=== PATIENT | male | born 1945 | race Caucasian/White ===

== ENCOUNTER 2021-03-16 07:44 | Observation (INO) | payer MEDICARE, SELFPAY ==
[2021-03-16] VITALS (18 sets, daily range): BP systolic 116–167; BP diastolic 68–115; PULSE 65–88; RESP 14–20; TEMP 36.6–36.8; O2SAT 90–98; BMI 30.4
--- NOTE | 2021-03-16 08:02 | XR_ITS ---
PROCEDURE: XR CHEST PORTABLE CLINICAL HISTORY: SOA, pain under rt rib with inspiration COMPARISON: CR [id number] VIEWS from 09/20/2012 FINDINGS: There is cardiomegaly. The patient has had a prior median sternotomy. There are low lung volumes with vascular crowding and blunting of the CP angle suggesting small bilateral pleural effusions. No obvious lobar consolidation or collapse. Vascular stent is present in the region the proximal left common carotid. Surgical clips are present along the mediastinum on the right and in the right paratracheal region. No acute bony abnormalities. IMPRESSION: Low lung volumes with cardiomegaly and small bilateral pleural effusions Dictated by: aLvell Frost MD 03/16/2021 08:52 Lavell Frost MD in [place] 03/16/2021 08:52
--- NOTE | 2021-03-16 08:14 | CT_ITS ---
PROCEDURE INFORMATION: Exam: CT Abdomen And Pelvis With Contrast Exam date and time: 03/16/2021 8:14 AM Age: 75 years old Clinical indication: Abdominal pain; Generalized; Additional info: Abdominal pain, right upper and lower quadrant TECHNIQUE: Imaging protocol: Computed tomography of the abdomen and pelvis with contrast. Radiation optimization: All CT scans at this facility use at least one of these dose optimization techniques: automated exposure control; mA and/or kV adjustment per patient size (includes targeted exams where dose is matched to clinical indication); or iterative reconstruction. Contrast material: ISOVUE; Contrast volume: 75 ml; Contrast route: IV; COMPARISON: None FINDINGS: Inferior thorax: Interstitial and trace airspace disease. Pleural thickening with dense left pleural and diaphragmatic calcification, along with fat containing hernia in the left lateral inferior thorax. Cardiomegaly and coronary artery calcification. Liver: Fatty infiltration of the liver with focal sparing about the gallbladder fossa. Gallbladder and bile ducts: Gallbladder dilatation with cholelithiasis, echoge high attenuation bile, and infiltration of pericholecystic fat. No biliary ductal dilatation. Pancreas: No pancreatic mass or ductal dilatation. Spleen: Spleen upper limits of normal size. Adrenal glands: Unremarkable adrenals. Kidneys and ureters: 4 mm nodular hypodensity in the left kidney which is too small to accurately characterize. No hydronephrosis. Stomach and bowel: Marked gastric wall thickening. Small bowel dilatation without a focal transition zone. Colonic dilatation with prominent stool. Diverticula, without pericolonic inflammation. Appendix: No acute appendicitis. Intraperitoneal space: Small quantity of dependent free fluid in the pelvis, along with a 10 mm calcification in the midline. Vasculature: 3.9 cm infrarenal fusiform infrarenal abdominal aortic aneurysm, with prominent crescentic thrombus and vascular calcification. Celiac and superior mesenteric artery stents. Lymph nodes: Subcentimeter lymph nodes. Urinary bladder: Mild bladder wall thickening. Reproductive: Punctate prostate calcifications. Bones/joints: Median sternotomy. Osteopenia and chronic compression fractures in the spine. Degenerative change, disc bulging, and mild scoliosis. Soft tissues: Multifocal postoperative change in the abdominal wall. Subcutaneous emphysema in the right anterior abdominal wall. IMPRESSION: 1. Gallbladder dilatation with cholelithiasis, echoge high attenuation bile, and infiltration of pericholecystic fat. 2. 3.9 cm infrarenal fusiform infrarenal abdominal aortic aneurysm, with prominent crescentic thrombus and vascular calcification. 3. Marked gastric wall thickening. 4. Additional findings as described above. The aforementioned findings initiated a critical results communication pathway. An addendum will be issued at the time of clincian notification.
--- NOTE | 2021-03-16 08:18 | ECG_ITS ---
APPROVED REPORT Exam: Resting ECG HR:69 bpm ECG Measurements Heart Rate 69 AXES QRSd 100 QRS 130 QT 414 T -18 QTc 443 Conclusion Atrial fibrillation with premature ventricular or aberrantly conducted complexes Right axis deviation Incomplete right bundle branch block Right ventricular hypertrophy Nonspecific ST abnormality, probably digitalis effect Abnormal QRS-T angle, consider primary T wave abnormality Abnormal ECG Electronically signed by : Johnson Salter MD 03/16/2021 20:34:20
[2021-03-16 08:38] LABS: Basophils % 0.1 % (0.1-2.0); Eosinophils # 0.1 K/mm3 (0.0-0.4); Eosinophils % 0.8 % (0.1-12.0); Hematocrit 42.2 % (42.0-52.0); Hemoglobin 13.7 g/dL (14.1-18.0); Lymphocytes # 0.7 K/mm3 (0.7-4.5); Mean Corpuscular HGB Conc 32.4 g/dL (31.8-35.4); Mean Corpuscular Volume 92.5 fl (80-94); Mean Platelet Volume 9.4 fl (7.4-10.4); Monocytes # 0.8 K/mm3 (0.1-1.0); Monocytes % 5.3 % (1.7-9.3); Neutrophils % 88.8 % (37.0-80.0); Platelet Count 135 K/mm3 (142-424); Red Blood Count 4.57 M/mm3 (4.60-6.20); Red Cell Distribution Width 17.5 % (11.5-17.5); White Blood Count 14.7 K/mm3 (4.8-10.8)
[2021-03-16 08:39] LABS: VBG Base Excess -0.7 mmol/L (-2.4-2.3); VBG HCO3 24.7 mmol/L (23-30); VBG Oxygen Saturation 86.8 % (50-70); VBG PCO2 44.5 mmol/L (35-51); VBG PH 7.36 mmol/L (7.31-7.41); VBG PO2 58.8 mmol/L (28-40); VBG Total CO2 26.1 mmol/L (23-27)
[2021-03-16 08:41] LABS: Chloride 95 mmol/L (98-107); Potassium 5.9 mmoL/L (3.5-5.1); Sodium 131 mmol/L (136-145)
[2021-03-16 08:42] LABS: MANUAL DIFFERENTIAL MANUAL DIFFERENTIAL (MANUAL DIFF)
[2021-03-16 08:43] LABS: Alanine Aminotransferase 16 U/L (12-78); Aspartate Amino Transferase 63 U/L (17-59); Blood Urea Nitrogen 15 mg/dl (9-20); Creatinine Clearance Estimated 83 mL/min (50-200); Estimated Glomerular Filt Rate 110 ml/min (>60); GFR (African American) 133 ML/MIN (>60)
[2021-03-16 08:44] LABS: Activated Partial Thrombo Time 29.6 seconds (22.8-30.6); Albumin Level 4.1 g/dl (3.5-5.0); Albumin/Globulin Ratio 1.1 (1.1-1.8); Alkaline Phosphatase 45 U/L (38-126); Anion Gap 12.9 mEq/L (5-15); Bilirubin,Total 1.8 mg/dl (0.2-1.3); Calcium 8.6 mg/dl (8.4-10.2); Carbon Dioxide 29 mmol/L (22.0-30.0); Globulin 3.6 g/dL (1.3-3.2); Glucose 151 mg/dl (74-100); INR 1.25 (0.9-1.1); Lipase 37 U/L (23-300); Prothrombin Time 13.9 seconds (10.1-12.5); Total Protein,Serum 7.7 g/dl (6.3-8.2)
[2021-03-16 08:53] LABS: NT Pro Brain Natriuretic Pep. 5750 pg/mL (0-125)
[2021-03-16 08:56] LABS: Troponin I 0.02 ng/ml (0.00-0.034)
[2021-03-16 08:59] LABS: Lymphocytes % 6 % (10-50); Monocytes % 9 % (2-9); Neutrophils % 85 % (42-76); Total Cells Counted 100
[2021-03-16 09:00] LABS: Platelet Estimate Slight Decrease; RBC Morphology Normal
[2021-03-16 09:06] LABS: Lactic Acid 2.5 mmol/L (0.7-2.1)
--- NOTE | 2021-03-16 09:13 | PC.NURSE ---
Going to CT
--- NOTE | 2021-03-16 10:08 | HMH.EDGENADL ---
ED Disposition Clinical Impression: Congestive heart failure (CHF), Cholecystitis Disposition: Admitted As Inpatient Condition on Discharge: Fair Referrals: Provider,Referral, [Primary Care Provider] - - Critical Care Critical Care Time: Yes Attestation: On 03/16/21, the high probability of a clinically significant, sudden or life threatening deterioration of the following system(s) required my full and direct attention, intervention and personal management. The time I documented below is in addition to time spent performing reported procedures but includes the following listed in this critical care notation. Total Critical Care Time: 35 Vital system(s) involved:: Circulatory Failure, Respiratory Failure My critical care processes included: Assessment & monitoring of V/S, Initial and Re-exams, Data Review/Interpretation, Coordinating Care, Medication Orders and management, Documentation Medical Decision Making - Medical Records Medical records reviewed: Yes: I reviewed the patient's medical records. - Ward Inquiry Pt receiving controlled substance: No Wrad was queried for this patient: No Vital Signs: 03/16/21 07:46 03/16/21 08:30 03/16/21 09:01 Temperature 98.2 F Temperature Source Oral Pulse Rate 80 65 Pulse Rate [Right Radial] 80 Respiratory Rate 18 16 14 Blood Pressure 121/70 126/97 H Blood Pressure [Right Arm] 123/87 Blood Pressure Mean 87 106 Blood Pressure Mean [Right Arm] 99 Blood Pressure Source [Right Arm] Automatic Cuff Blood Pressure Position [Right Arm] Sitting 02 Sat by Pulse Oximetry 90 L 97 98 Oxygen Delivery Method Room Air 03/16/21 09:31 03/16/21 10:00 03/16/21 10:31 Temperature Temperature Source Pulse Rate 78 88 70 Pulse Rate [Right Radial] Respiratory Rate 14 16 15 Blood Pressure 150/92 H 143/94 H 131/68 Blood Pressure [Right Arm] Blood Pressure Mean 110 101 72 Blood Pressure Mean [Right Arm] Blood Pressure Source [Right Arm] Blood Pressure Position [Right Arm] 02 Sat by Pulse Oximetry 98 98 98 Oxygen Delivery Method 03/16/21 11:00 03/16/21 11:30 03/16/21 12:00 Temperature Temperature Source Pulse Rate 65 71 73 Pulse Rate [Right Radial] Respiratory Rate 16 16 15 Blood Pressure 122/78 151/92 H 125/76 Blood Pressure [Right Arm] Blood Pressure Mean 86 111 93 Blood Pressure Mean [Right Arm] Blood Pressure Source [Right Arm] Blood Pressure Position [Right Arm] 02 Sat by Pulse Oximetry 92 L 95 97 Oxygen Delivery Method - Lab Data Lab Results 03/16/21 08:12: WBC 14.7 H, RBC 4.57 L, Hgb 13.7 L, Hct 42.2, MCV 92.5, MCH 30.0, MCHC 32.4, RDW 17.5, Plt Count 135 L, MPV 9.4, Neut % (Auto) 88.8 H, Lymph % (Auto) 5.0 L, [place] % (Auto) 5.3, Eos % (Auto) 0.8, Baso % (Auto) 0.1, Neut # (Auto) 13.0 H, Lymph # (Auto) 0.7, [place] # (Auto) 0.8, Eos # (Auto) 0.1, Baso # (Auto) 0.0, Total Counted 100, Neutrophils % (Manual) 85 H, Lymphocytes % (Manual) 6 L, Monocytes % (Manual) 9, Platelet Estimate Slight decrease, RBC Morphology Normal 03/16/21 08:12: Sodium 131 L, Potassium 5.9 H, Chloride 95 L, Carbon Dioxide 29, Anion Gap 12.9, BUN 15, Creatinine 0.70, Estimated Creat Clear 83, Estimated GFR 110, Est GFR ( Amer) 133, Glucose 151 H, Calcium 8.6, Total Bilirubin 1.8 H, AST 63 H, ALT 16, Alkaline Phosphatase 45, Troponin I 0.02, Total Protein 7.7, Albumin 4.1, Globulin 3.6 H, Albumin/Globulin Ratio 1.1 03/16/21 08:12: PT 13.9 H, INR 1.25 H, APTT 29.6 03/16/21 08:12: NT-Pro-B Natriuret Pep 5750 H, Lipase 37 03/16/21 08:14: VBG pH 7.36, VBG pCO2 44.5, VBG pO2 58.8 H, VBG HCO3 24.7, VBG Total CO2 26.1, VBG O2 Saturation 86.8 H, VBG Base Excess -0.7 03/16/21 08:45: Lactate 2.5 H 03/16/21 10:55: SARS-CoV-2 (PCR) Not detected, Influenza A Untype (PCR) Not detected, Influenza Type B (PCR) Not detected 03/16/21 11:20: Troponin I < 0.01 Result diagrams: 03/16/21 08:12 03/16/21 08:12 Orders (Tests/Meds): ED MEDICATIONS
--- NOTE | 2021-03-16 10:54 | PC.NURSE ---
has been called. Will call back.
--- NOTE | 2021-03-16 10:57 | PC.NURSE ---
on phone with
[2021-03-16 11:00] LABS: Coronavirus 19, PCR Not Detected (NotDetected); Influenza A, PCR Not Detected (NotDetected); Influenza B, PCR Not Detected (NotDetected)
--- NOTE | 2021-03-16 11:03 | PC.NURSE ---
Cardiology has been called
--- NOTE | 2021-03-16 11:05 | PC.NURSE ---
on the phone with Guera
--- NOTE | 2021-03-16 11:08 | PC.NURSE ---
has been paged
--- NOTE | 2021-03-16 11:34 | HMH.CNCARD ---
History of Present Illness Consult date: 03/16/21 Requesting physician: Taco Riley Chief complaint: CHF History of present illness: 75-year-old male presented to the emergency room with worsening shortness of breath and right flank pain. Patient states for the past few days he has been having worsening shortness of breath and unable to perform his daily activities. Patient denies chest pain, tightness or pressure. Patient states he was currently at the [facility] in December with the same diagnosis of shortness of breath. Patient states he was told at the [facility] to take his Lasix only if he had gained 5 pounds in a week. Patient states when he is feeling well he does not take his medications as they are prescribed. Stressed to patient the importance of taking medications as prescribed. Patient verbalized understanding. No swelling noted of the lower extremities. Patient denies palpitations. EKG reveals atrial fibrillation with PVCs, incomplete right bundle branch block, RVH with a heart rate of 69 bpm. Patient states he does have history of atrial fibrillation and has been on Eliquis. Patient states he does take his Eliquis twice a day on a regular basis. Atrial fibrillation is at a controlled rate. Patient states he does take metoprolol for his blood pressure at home. Patient states he does have history of hypertension. History of hyperlipidemia in which he is on a statin. Abdominal CT was performed which revealed cardiomegaly and coronary artery calcification. Gallbladder dilation was noted. 3.9 cm infrarenal fusiform aortic aneurysm was also noted with prominent thrombosis and vascular calcification. It was also noted in the abdominal CT that patient had celiac and superior mesenteric artery stents. Patient is a poor historian. Patient denies tobacco use. 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 Serial troponins have been performed. Troponin x1 has been negative. BNP noted to be over 5000. Potassium noted at 5.9. Sodium 131. Electrolyte imbalance managed by PCP. Chest x-ray revealed low volume in the lungs with cardiomegaly and small bilateral pleural effusions. Blood pressure is stable. Will obtain echocardiogram to assess LV function and valve status. Will start Lasix 80 mg IV for diastolic dysfunction. Pending on the echocardiogram results, medication and treatment therapies may be recommended. CXR:IMPRESSION: Low lung volumes with cardiomegaly and small bilateral pleural effusions ABD CT:FINDINGS: Inferior thorax: Interstitial and trace airspace disease. Pleural thickening with dense left pleural and diaphragmatic calcification, along with fat containing hernia in the left lateral inferior thorax. Cardiomegaly and coronary artery calcification. Liver: Fatty infiltration of the liver with focal sparing about the gallbladder fossa. Gallbladder and bile ducts: Gallbladder dilatation with cholelithiasis, echoge high attenuation bile, and infiltration of pericholecystic fat. No biliary ductal dilatation. Pancreas: No pancreatic mass or ductal dilatation. Spleen: Spleen upper limits of normal size. Adrenal glands: Unremarkable adrenals. Kidneys and ureters: 4 mm nodular hypodensity in the left kidney which is too small to accurately characterize. No hydronephrosis. Stomach and bowel: Marked gastric wall thickening. Small bowel dilatation without a focal transition zone. Colonic dilatation with prominent stool. Diverticula, without pericolonic inflammation. Appendix: No acute appendicitis. Intraperitoneal space: Small quantity of dependent free fluid in the pelvis, along with a 10 mm calcification in the midline. Vasculature: 3.9 cm infrarenal fusiform infrarenal abdominal aortic aneurysm, with prominent crescentic thrombus and vascular calcification. Celiac and superior mesenteric artery stents. Lymph nodes: Subcentimeter lymph nodes.
--- NOTE | 2021-03-16 11:35 | CA_ITS ---
APPROVED REPORT EXAM: Comprehensive 2D, Doppler, and color-flow Echocardiogram Brick Burner: Deborah Roberts CRT Ht: 5 ft 8 in Wt: 200lbs BSA: 2.04 BP: 120/78 mmHg Indications: Chest Pressure, Shortness of Breath, Hyperlipidemia, Hypertension/HDD, CABG 2000, AFIB 2D Dimensions LVOT 1.86 cm (M/F) 1.5-2.5 LA Volume 82.80 mL LA Volume Index 40.60 mL/m2 (M/F) 16-34 M-Mode Dimensions RVDd 3.93 cm (0.9-2.6) LA Diam 4.57 cm (1.9-4.0) LVDd 4.57 cm (3.5-5.7) Ao Diam 4.29 cm (2.0-3.7) LVDs 3.29 cm (3.5-5.7) IVSd 0.82 cm (0.6-1.1) PWd 1.04 cm (0.6-1.1) EF (Teich) 54.30% FS 28.00% EDV (Teich) 95.90 mL TAPSE 1.09 (<1.7) ESV (Teich) 43.80 mL LV Diastology E Decel Time 127.00 (160-240 msec) E/A Ratio 6.10 Aortic Valve AO Peak GR. 4.50 mmHg Mitral Valve MV A Velocity 16.00 (40-130 cm/s) E/A Ratio 6.10 MV Decel. Time 127.00 (160-240 ms) Pulmonary Valve PV Peak Velocity 109.00 (50-150 cm/s) Tricuspid Valve TR P. Velocity 351.00 cm/s Left Ventricle Left atrium is moderately enlarged, left ventricle is normal size, mild concentric left ventricular hypertrophy, visually estimated ejection fraction 55% with no obvious regional wall motion abnormality, there is abnormal septal motion. Diastolic parameters are inconclusive. Right Ventricle Right atrium and right ventricle mildly enlarged with normal contractility. Aortic Valve Aortic valve is thickened and calcified without Doppler evidence of aortic stenosis or aortic insufficiency. Mitral Valve Mitral valve grossly normal, there is mild mitral regurgitation. Tricuspid Valve Tricuspid valve grossly normal, there is mild tricuspid regurgitation, calculated right ventricular systolic pressure is 60 mmHg. Pulmonic Valve Pulmonic valve is poorly visualized. Great Vessels Aortic root is normal size. Inferior vena cava is poorly visualized. Pericardium No significant pericardial effusion noted. Conclusion 1. Biatrial enlargement, normal left ventricular size, mild concentric left ventricular hypertrophy, visually estimated ejection fraction 55%, there is abnormal septal motion, diastolic parameters are inconclusive. 2. Enlarged right ventricle with normal contractility. 3. Thickened and calcified aortic valve without aortic stenosis or aortic insufficiency. 4. Mild mitral and tricuspid regurgitation, calculated right ventricular systolic pressure 60 mmHg. 5. No significant pericardial effusion noted. 6. Inferior vena cava is poorly visualized. Electronically signed by : Eliseo Vance MD 03/16/2021 20:13:31
[2021-03-16 11:52] LABS: Troponin I < 0.01 ng/ml (0.00-0.034)
--- NOTE | 2021-03-16 11:52 | PC.NURSE ---
has been paged.
--- NOTE | 2021-03-16 12:19 | PC.NURSE ---
MARE GOODE speaking with Dr. Riley
--- NOTE | 2021-03-16 12:20 | PC.NURSE ---
on the phone with
--- NOTE | 2021-03-16 12:34 | PC.NURSE ---
Spoke with Leighann in Care Management about admission
--- NOTE | 2021-03-16 12:48 | HMH.GSCON ---
*Admission Date: 03/16/21 *Reason for consult:: Calculus cholecystitis *History of present illness: This is a 75-year-old gentleman who presented to the emergency department with a 3-4-day history of increasing pain mostly in the right upper quadrant. Evaluation included a CT scan that showed changes consistent with acute calculus cholecystitis. Transaminases essentially normal. Bilirubin 1.8. White blood cell count 14.7. The patient was also determined to have a degree of congestive heart failure as his BNP was 5750. Evaluation by Cards ongoing...echo pending. Review of Systems - Constitutional Denies chills - ENT Denies difficulty swallowing - *Cardiovascular Reports shortness of breath with activity - *Respiratory Denies cough - *Gastrointestinal Reports abdominal pain - *Genitourinary Denies blood in urine - *Neurologic Reports abnormal walking, Reports abnormal hearing, Reports weakness - Hematologic/Lymphatic Denies easy bleeding [facility] History *Have you ever received a pneumonia vaccine?: No *Have you received a flu vaccine this season?: No - *Social History Smoking Status: Smoker, status unknown Alcohol Intake: never Alcohol Intake Frequency:: other *Occupational Status:: retired *Travel in the last 8 weeks: None Family Hx:: No significant family history Meds Allergies Allergy/AdvReac Type Severity Reaction Status Date / Time No Known Allergies Allergy Unverified 03/13/17 14:33 Exam Vital signs and Labs for Last 24 Hours: Temp Pulse Resp BP Pulse Ox 98.2 F 73 15 125/76 97 03/16/21 07:46 03/16/21 12:00 03/16/21 12:00 03/16/21 12:00 03/16/21 12:00 Laboratory Results - last 24 hr 03/16/21 08:12: WBC 14.7 H, RBC 4.57 L, Hgb 13.7 L, Hct 42.2, MCV 92.5, MCH 30.0, MCHC 32.4, RDW 17.5, Plt Count 135 L, MPV 9.4, Neut % (Auto) 88.8 H, Lymph % (Auto) 5.0 L, [place] % (Auto) 5.3, Eos % (Auto) 0.8, Baso % (Auto) 0.1, Neut # (Auto) 13.0 H, Lymph # (Auto) 0.7, [place] # (Auto) 0.8, Eos # (Auto) 0.1, Baso # (Auto) 0.0, Total Counted 100, Neutrophils % (Manual) 85 H, Lymphocytes % (Manual) 6 L, Monocytes % (Manual) 9, Platelet Estimate Slight decrease, RBC Morphology Normal 03/16/21 08:12: Sodium 131 L, Potassium 5.9 H, Chloride 95 L, Carbon Dioxide 29, Anion Gap 12.9, BUN 15, Creatinine 0.70, Estimated Creat Clear 83, Estimated GFR 110, Est GFR ( Amer) 133, Glucose 151 H, Calcium 8.6, Total Bilirubin 1.8 H, AST 63 H, ALT 16, Alkaline Phosphatase 45, Troponin I 0.02, Total Protein 7.7, Albumin 4.1, Globulin 3.6 H, Albumin/Globulin Ratio 1.1 03/16/21 08:12: PT 13.9 H, INR 1.25 H, APTT 29.6 03/16/21 08:12: NT-Pro-B Natriuret Pep 5750 H, Lipase 37 03/16/21 08:14: VBG pH 7.36, VBG pCO2 44.5, VBG pO2 58.8 H, VBG HCO3 24.7, VBG Total CO2 26.1, VBG O2 Saturation 86.8 H, VBG Base Excess -0.7 03/16/21 08:45: Lactate 2.5 H 03/16/21 10:55: SARS-CoV-2 (PCR) Not detected, Influenza A Untype (PCR) Not detected, Influenza Type B (PCR) Not detected 03/16/21 11:20: Troponin I < 0.01 I & O for Last 24 hours: Intake & Output 03/14/21 03/15/21 03/16/21 03/17/21 11:59 11:59 11:59 11:59 Weight 200 lb - Constitutional no acute distress - *Routine Respiratory Exam Absent: respiratory distress - *Routine Cardiovascular Exam Absent: tachycardia - *Routine Abdominal Exam Present: soft, tenderness Results - Labs 03/16/21 08:12 03/16/21 08:12 Laboratory Results - last 24 hr 03/16/21 08:12: WBC 14.7 H, RBC 4.57 L, Hgb 13.7 L, Hct 42.2, MCV 92.5, MCH 30.0, MCHC 32.4, RDW 17.5, Plt Count 135 L, MPV 9.4, Neut % (Auto) 88.8 H, Lymph % (Auto) 5.0 L, [place] % (Auto) 5.3, Eos % (Auto) 0.8, Baso % (Auto) 0.1, Neut # (Auto) 13.0 H, Lymph # (Auto) 0.7, [place] # (Auto) 0.8, Eos # (Auto) 0.1, Baso # (Auto) 0.0, Total Counted 100, Neutrophils % (Manual) 85 H, Lymphocytes % (Manual) 6 L, Monocytes % (Manual) 9, Platelet Estimate Slight decrease, RBC Morphology Normal 03/16/21 08:12: Sodium 131 L, Potassium
[2021-03-16 12:51] LABS: Reflex Lactic Add Lactic Reflex
[2021-03-16 14:23] LABS: Lactic Acid Follow Up (RFLX 1) 2.2 mmol/L (0.7-2.1)
[2021-03-16 15:11] LABS: Troponin I < 0.01 ng/ml (0.00-0.034)
[2021-03-16 16:03] LABS: Reflex Lactic (2 hrs) Add Lactic Reflex
[2021-03-16 17:01] LABS: Lactic Acid Follow up (RFLX 2) 2.2 mmol/L (0.7-2.1)
--- NOTE | 2021-03-16 19:08 | PC.NURSE ---
AOX4 ABLE TO MAKE NEEDS KNOWN TO STAFF, DENIES N/V/D. STATES THAT PAIN IS TOLERABLE AT THIS TIME. PT DID NOT KNOW HOME MEDS SO THIS RN COULD NOT COMPLETE MED REC.
[2021-03-17] VITALS (8 sets, daily range): BP systolic 95–160; BP diastolic 38–75; PULSE 60–90; RESP 16–20; TEMP 36.4–36.6; O2SAT 90–92; BMI 30.4
--- NOTE | 2021-03-17 06:32 | HMH.GSPN ---
Subjective Patient reports: feels better Progress Note: A&P (1) Congestive heart failure (CHF) Status: Acute (2) Diastolic dysfunction Status: Acute (3) Atrial fibrillation Status: Acute (4) HTN (hypertension) Status: Acute (5) HLD (hyperlipidemia) Status: Acute (6) AAA (abdominal aortic aneurysm) Status: Acute (7) Acute cholecystitis due to biliary calculus Status: Acute Assessment and plan: Patient symptomatically improved on current therapy (pain control/antibiotics). Plan cholecystectomy today if cleared by cardiology. I have discussed the risks and benefits including, but not limited to: Bleeding Infection Damage to surrounding tissue Inherent risks of sedation The patient agrees to proceed. Exam Vital signs and Labs for Last 24 Hours: Temp Pulse Resp BP Pulse Ox 97.5 F L 80 16 117/75 92 L 03/17/21 04:00 03/17/21 04:00 03/17/21 04:00 03/17/21 04:00 03/17/21 04:00 Laboratory Results - last 24 hr 03/16/21 08:12: WBC 14.7 H, RBC 4.57 L, Hgb 13.7 L, Hct 42.2, MCV 92.5, MCH 30.0, MCHC 32.4, RDW 17.5, Plt Count 135 L, MPV 9.4, Neut % (Auto) 88.8 H, Lymph % (Auto) 5.0 L, [place] % (Auto) 5.3, Eos % (Auto) 0.8, Baso % (Auto) 0.1, Neut # (Auto) 13.0 H, Lymph # (Auto) 0.7, [place] # (Auto) 0.8, Eos # (Auto) 0.1, Baso # (Auto) 0.0, Total Counted 100, Neutrophils % (Manual) 85 H, Lymphocytes % (Manual) 6 L, Monocytes % (Manual) 9, Platelet Estimate Slight decrease, RBC Morphology Normal 03/16/21 08:12: Sodium 131 L, Potassium 5.9 H, Chloride 95 L, Carbon Dioxide 29, Anion Gap 12.9, BUN 15, Creatinine 0.70, Estimated Creat Clear 83, Estimated GFR 110, Est GFR ( Amer) 133, Glucose 151 H, Calcium 8.6, Total Bilirubin 1.8 H, AST 63 H, ALT 16, Alkaline Phosphatase 45, Troponin I 0.02, Total Protein 7.7, Albumin 4.1, Globulin 3.6 H, Albumin/Globulin Ratio 1.1 03/16/21 08:12: PT 13.9 H, INR 1.25 H, APTT 29.6 03/16/21 08:12: NT-Pro-B Natriuret Pep 5750 H, Lipase 37 03/16/21 08:14: VBG pH 7.36, VBG pCO2 44.5, VBG pO2 58.8 H, VBG HCO3 24.7, VBG Total CO2 26.1, VBG O2 Saturation 86.8 H, VBG Base Excess -0.7 03/16/21 08:45: Lactate 2.5 H 03/16/21 10:55: SARS-CoV-2 (PCR) Not detected, Influenza A Untype (PCR) Not detected, Influenza Type B (PCR) Not detected 03/16/21 11:20: Troponin I < 0.01 03/16/21 14:00: Troponin I < 0.01 03/16/21 14:00: Lactate 2.2 H 03/16/21 16:28: Lactate 2.2 H I & O for Last 24 hours: Intake & Output 03/14/21 03/15/21 03/16/21 03/17/21 11:59 11:59 11:59 11:59 Output Total 500 / 500 Balance -500 / -500 Weight 200 lb 201 lb 0.985 oz - Constitutional no acute distress - *Routine Respiratory Exam Absent: respiratory distress - *Routine Cardiovascular Exam Absent: tachycardia - *Routine Abdominal Exam Present: soft, tenderness
[2021-03-17 07:22] LABS: Basophils % 0.4 % (0.1-2.0); Eosinophils # 0.1 K/mm3 (0.0-0.4); Eosinophils % 1.3 % (0.1-12.0); Hematocrit 43.1 % (42.0-52.0); Hemoglobin 13.8 g/dL (14.1-18.0); Lymphocytes # 0.8 K/mm3 (0.7-4.5); Lymphocytes % 8.2 % (10-50); Mean Corpuscular HGB Conc 31.9 g/dL (31.8-35.4); Mean Corpuscular Hemoglobin 29.8 pg (27.0-31.2); Mean Corpuscular Volume 93.4 fl (80-94); Mean Platelet Volume 8.7 fl (7.4-10.4); Monocytes # 0.6 K/mm3 (0.1-1.0); Monocytes % 5.9 % (1.7-9.3); Neutrophils # 7.8 K/mm3 (1.8-7.8); Neutrophils % 84.1 % (37.0-80.0); Platelet Count 142 K/mm3 (142-424); Red Blood Count 4.61 M/mm3 (4.60-6.20); Red Cell Distribution Width 17.8 % (11.5-17.5); White Blood Count 9.3 K/mm3 (4.8-10.8)
[2021-03-17 07:31] LABS: Chloride 93 mmol/L (98-107); Potassium 3.9 mmoL/L (3.5-5.1); Sodium 133 mmol/L (136-145)
[2021-03-17 07:33] LABS: Blood Urea Nitrogen 19 mg/dl (9-20); Creatinine Clearance Estimated 84 mL/min (50-200); Estimated Glomerular Filt Rate 82 ml/min (>60); GFR (African American) 100 ML/MIN (>60)
[2021-03-17 07:34] LABS: Alanine Aminotransferase 9 U/L (12-78); Albumin Level 3.7 g/dl (3.5-5.0); Albumin/Globulin Ratio 1.1 (1.1-1.8); Alkaline Phosphatase 64 U/L (38-126); Anion Gap 10.9 mEq/L (5-15); Aspartate Amino Transferase 22 U/L (17-59); Bilirubin,Total 1.4 mg/dl (0.2-1.3); Calcium 8.6 mg/dl (8.4-10.2); Carbon Dioxide 33 mmol/L (22.0-30.0); Globulin 3.4 g/dL (1.3-3.2); Glucose 107 mg/dl (74-100); Total Protein,Serum 7.1 g/dl (6.3-8.2)
--- NOTE | 2021-03-17 09:11 | HMH.PNCARD ---
Subjective Date: 03/17/21 Time: 08:35 Principal diagnosis: CHF Interval history: 75-year-old male presented to the emergency room with worsening shortness of breath and right flank pain on 03/16/21. Patient states for the past few days he has been having worsening shortness of breath and unable to perform his daily activities. Patient denies chest pain, tightness or pressure. Patient states he was currently at the [facility] in December with the same diagnosis of shortness of breath. Patient states he was told at the [facility] to take his Lasix only if he had gained 5 pounds in a week. Patient states when he is feeling well he does not take his medications as they are prescribed. Due to BNP being elevated and consistent with diastolic congestive heart failure, Lasix 80 mg was given IV in which did have appropriate response. Patient did diurese appropriately. Surgery has been consulted due to patient having gallstones. Patient is to undergo cholecystectomy today once cardiac clearance is given. Patient states overall he is breathing much better. Patient does continue to have right flank pain. Patient denies vomiting. Echocardiogram revealed EF 55% there is abnormal septal motion abnormality. Thickened and calcified aortic valve without aortic stenosis or aortic insufficiency. Mild mitral and tricuspid regurgitation noted. 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 Patient does have history of atrial fibrillation. Patient is currently on Eliquis 5 mg twice daily for anticoagulation. Patient is also on metoprolol for heart rate and blood pressure control. Eliquis will need to be held prior to surgery. Eliquis will need to be resumed immediately after surgery. We will stop Lasix 80 mg IV and switch to Lasix 40 mg p.o. daily due to diastolic congestive heart failure. Echo:Conclusion 1. Biatrial enlargement, normal left ventricular size, mild concentric left ventricular hypertrophy, visually estimated ejection fraction 55%, there is abnormal septal motion, diastolic parameters are inconclusive. 2. Enlarged right ventricle with normal contractility. 3. Thickened and calcified aortic valve without aortic stenosis or aortic insufficiency. 4. Mild mitral and tricuspid regurgitation, calculated right ventricular systolic pressure 60 mmHg. 5. No significant pericardial effusion noted. 6. Inferior vena cava is poorly visualized. Exam Vital signs and Labs for Last 24 Hours: Temp Pulse Resp BP Pulse Ox 97.5 F L 80 16 117/75 92 L 03/17/21 04:00 03/17/21 04:00 03/17/21 04:00 03/17/21 04:00 03/17/21 04:00 Laboratory Results - last 24 hr 03/16/21 10:55: SARS-CoV-2 (PCR) Not detected, Influenza A Untype (PCR) Not detected, Influenza Type B (PCR) Not detected 03/16/21 11:20: Troponin I < 0.01 03/16/21 14:00: Troponin I < 0.01 03/16/21 14:00: Lactate 2.2 H 03/16/21 16:28: Lactate 2.2 H 03/17/21 06:49: WBC 9.3 D, RBC 4.61, Hgb 13.8 L, Hct 43.1, MCV 93.4, MCH 29.8, MCHC 31.9, RDW 17.8 H, Plt Count 142, MPV 8.7, Neut % (Auto) 84.1 H, Lymph % (Auto) 8.2 L, [place] % (Auto) 5.9, Eos % (Auto) 1.3, Baso % (Auto) 0.4, Neut # (Auto) 7.8, Lymph # (Auto) 0.8, [place] # (Auto) 0.6, Eos # (Auto) 0.1, Baso # (Auto) 0.0 03/17/21 06:49: Sodium 133 L, Potassium 3.9 D, Chloride 93 L, Carbon Dioxide 33 H, Anion Gap 10.9, BUN 19 D, Creatinine 0.90 D, Estimated Creat Clear 84, Estimated GFR 82, Est GFR ( Amer) 100 D, Glucose 107 H D, Calcium 8.6, Total Bilirubin 1.4 H, AST 22 D, ALT 9 L D, Alkaline Phosphatase 64, Total Protein 7.1, Albumin 3.7, Globulin 3.4 H, Albumin/Globulin Ratio 1.1 I & O for Last 24 hours: Intake & Output 03/14/21 03/15/21 03/16/21 03/17/21 23:59 23:59 23:59 23:59 Output Total 500 / 500 Balance -500 / -500 Weight 200 lb 4 oz 201 lb 0.985 oz - Constitutional mild distress, obese, cooperative - *Routine HEENT Exam Head: Present: normocephalic ENT: Presen
--- NOTE | 2021-03-17 09:26 | P.PN_ITS ---
Internal Medicine - PN: Subj *Date: 03/17/21 *Time: 09:27 Exam Vital signs and Labs for Last 24 Hours: Temp Pulse Resp BP Pulse Ox 97.5 F L 80 16 117/75 92 L 03/17/21 04:00 03/17/21 04:00 03/17/21 04:00 03/17/21 04:00 03/17/21 04:00 Laboratory Results - last 24 hr 03/16/21 10:55: SARS-CoV-2 (PCR) Not detected, Influenza A Untype (PCR) Not detected, Influenza Type B (PCR) Not detected 03/16/21 11:20: Troponin I < 0.01 03/16/21 14:00: Troponin I < 0.01 03/16/21 14:00: Lactate 2.2 H 03/16/21 16:28: Lactate 2.2 H 03/17/21 06:49: WBC 9.3 D, RBC 4.61, Hgb 13.8 L, Hct 43.1, MCV 93.4, MCH 29.8, MCHC 31.9, RDW 17.8 H, Plt Count 142, MPV 8.7, Neut % (Auto) 84.1 H, Lymph % (Auto) 8.2 L, [place] % (Auto) 5.9, Eos % (Auto) 1.3, Baso % (Auto) 0.4, Neut # (Auto) 7.8, Lymph # (Auto) 0.8, [place] # (Auto) 0.6, Eos # (Auto) 0.1, Baso # (Auto) 0.0 03/17/21 06:49: Sodium 133 L, Potassium 3.9 D, Chloride 93 L, Carbon Dioxide 33 H, Anion Gap 10.9, BUN 19 D, Creatinine 0.90 D, Estimated Creat Clear 84, Estimated GFR 82, Est GFR ( Amer) 100 D, Glucose 107 H D, Calcium 8.6, Total Bilirubin 1.4 H, AST 22 D, ALT 9 L D, Alkaline Phosphatase 64, Total Protein 7.1, Albumin 3.7, Globulin 3.4 H, Albumin/Globulin Ratio 1.1 I & O for Last 24 hours: Intake & Output 03/14/21 03/15/21 03/16/21 03/17/21 23:59 23:59 23:59 23:59 Output Total 500 / 500 Balance -500 / -500 Weight 200 lb 4 oz 201 lb 0.985 oz Assessment and Plan (1) Congestive heart failure (CHF) Status: Acute Category: Medical Code(s): I50.9 - Heart failure, unspecified (2) Diastolic dysfunction Status: Acute Category: Medical Code(s): I51.89 - Other ill-defined heart diseases (3) Atrial fibrillation Status: Acute Category: Medical Code(s): I48.91 - Unspecified atrial fibrillation (4) HTN (hypertension) Status: Acute Category: Medical Code(s): I10 - Essential (primary) hypertension (5) HLD (hyperlipidemia) Status: Acute Category: Medical Code(s): E78.5 - Hyperlipidemia, unspecified (6) AAA (abdominal aortic aneurysm) Status: Acute Category: Medical Code(s): I71.4 - Abdominal aortic aneurysm, without rupture (7) Acute cholecystitis due to biliary calculus Status: Acute Category: Medical Code(s): K80.00 - Calculus of gallbladder with acute cholecystitis without obstruction
--- NOTE | 2021-03-17 12:31 | HMH.HP ---
*Admission Date: 03/16/21 *Chief complaint: R Side Abdominal Pain *History of present illness: Patient is a 75-year-old male with medical history of coronary artery disease status post CABG, hypertension presenting to the ED of breath and right-sided abdominal pain. Patient states that his main concern is the right-sided abdominal pain that has been progressively worsening. States that the pain is cyclical in nature, nothing makes it better or worse. Pain is associated with nausea, patient has not had any vomiting. Patient states that months ago he was admitted [facility] the [facility] for similar symptoms and at that point started on diuretics. Patient states that he has not been taking his diuretics. Patient states that he has been feeling short of breath is also been progressively worsening. In triage patient was noted to be hypoxic saturating 88% and placed on 3 L of oxygen. This ia new requirement for the patient. 03/16/21 CXR: IMPRESSION: Low lung volumes with cardiomegaly and small bilateral pleural effusions Dictated by: Lavell Frost MD 03/16/21 Abd/Pelvic CT: FINDINGS: Inferior thorax: Interstitial and trace airspace disease. Pleural thickening with dense left pleural and diaphragmatic calcification, along with fat containing hernia in the left lateral inferior thorax. Cardiomegaly and coronary artery calcification. Liver: Fatty infiltration of the liver with focal sparing about the gallbladder fossa. Gallbladder and bile ducts: Gallbladder dilatation with cholelithiasis, echoge high attenuation bile, and infiltration of pericholecystic fat. No biliary ductal dilatation. Pancreas: No pancreatic mass or ductal dilatation. Spleen: Spleen upper limits of normal size. Adrenal glands: Unremarkable adrenals. Kidneys and ureters: 4 mm nodular hypodensity in the left kidney which is too small to accurately characterize. No hydronephrosis. Stomach and bowel: Marked gastric wall thickening. Small bowel dilatation without a focal transition zone. Colonic dilatation with prominent stool. Diverticula, without pericolonic inflammation. Appendix: No acute appendicitis. Intraperitoneal space: Small quantity of dependent free fluid in the pelvis, along with a 10 mm calcification in the midline. Vasculature: 3.9 cm infrarenal fusiform infrarenal abdominal aortic aneurysm, with prominent crescentic thrombus and vascular calcification. Celiac and superior mesenteric artery stents. Lymph nodes: Subcentimeter lymph nodes. Urinary bladder: Mild bladder wall thickening. Reproductive: Punctate prostate calcifications. Bones/joints: Median sternotomy. Osteopenia and chronic compression fractures in the spine. Degenerative change, disc bulging, and mild scoliosis. Soft tissues: Multifocal postoperative change in the abdominal wall. Subcutaneous emphysema in the right anterior abdominal wall. IMPRESSION: 1. Gallbladder dilatation with cholelithiasis, echoge high attenuation bile, and infiltration of pericholecystic fat. 2. 3.9 cm infrarenal fusiform infrarenal abdominal aortic aneurysm, with prominent crescentic thrombus and vascular calcification. 3. Marked gastric wall thickening. 4. Additional findings as described above. Electronically signed by Bola Pollock MD 75-year-old patient lying in bed resting quietly, she reports pain is been controlled during the night and reports only slight abdominal tenderness this morning. Plan for surgery this afternoon, patient requesting diet explained to patient purpose of n.p.o. before surgery, patient verbalized understanding. He has received doses of Zosyn and cefazolin IV during inpatient. Cardiology following and general surgery following. [facility] History I have reviewed the patient's past medical history: Yes Medical History: Reports:: Arrhythmia, Atrial Fibrillation, Cancer, Coronary Artery Disease, Hyperlipidemia, Hypertension *Have you ever received a pn
[2021-03-18] VITALS (8 sets, daily range): BP systolic 98–149; BP diastolic 49–81; PULSE 62–90; RESP 16–20; TEMP 36.4–36.7; O2SAT 90–94; BMI 30.8
--- NOTE | 2021-03-18 06:43 | PC.NURSE ---
No acute events have occurred thus far in this RN's shift.
[2021-03-18 06:50] LABS: Basophils # 0.1 K/mm3 (0-0.2); Basophils % 0.8 % (0.1-2.0); Eosinophils # 0.3 K/mm3 (0.0-0.4); Eosinophils % 3.4 % (0.1-12.0); Hematocrit 44.8 % (42.0-52.0); Hemoglobin 13.9 g/dL (14.1-18.0); Lymphocytes # 0.8 K/mm3 (0.7-4.5); Lymphocytes % 9.8 % (10-50); Mean Corpuscular Hemoglobin 29.7 pg (27.0-31.2); Mean Corpuscular Volume 95.7 fl (80-94); Monocytes # 0.3 K/mm3 (0.1-1.0); Monocytes % 4.4 % (1.7-9.3); Neutrophils # 6.4 K/mm3 (1.8-7.8); Neutrophils % 81.6 % (37.0-80.0); Platelet Count 139 K/mm3 (142-424); Red Blood Count 4.68 M/mm3 (4.60-6.20); Red Cell Distribution Width 17.8 % (11.5-17.5); White Blood Count 7.8 K/mm3 (4.8-10.8)
[2021-03-18 07:11] LABS: Chloride 93 mmol/L (98-107); Potassium 3.6 mmoL/L (3.5-5.1); Sodium 133 mmol/L (136-145)
[2021-03-18 07:14] LABS: Blood Urea Nitrogen 26 mg/dl (9-20); Creatinine Clearance Estimated 85 mL/min (50-200); Estimated Glomerular Filt Rate 82 ml/min (>60); GFR (African American) 100 ML/MIN (>60)
[2021-03-18 07:15] LABS: Anion Gap 10.6 mEq/L (5-15); Calcium 8.5 mg/dl (8.4-10.2); Carbon Dioxide 33 mmol/L (22.0-30.0); Glucose 103 mg/dl (74-100)
--- NOTE | 2021-03-18 07:33 | P.CONPHA_ITS ---
[facility] Pharmacy VTE Monitoring - Patient Demographics Admission date: 03/18/21 Report Date: 03/18/21 Time: 07:33 Allergies/Adverse Reactions: Patient Allergies No Known Allergies Allergy (Unverified 03/13/17 14:33) Height: 1.73 m Weight: 92.2 kg Patient Problems: Current Active Problems Congestive heart failure (CHF) (Acute) Diastolic dysfunction (Acute) Atrial fibrillation (Acute) HTN (hypertension) (Acute) HLD (hyperlipidemia) (Acute) AAA (abdominal aortic aneurysm) (Acute) Cholecystitis (Acute) Acute cholecystitis due to biliary calculus (Acute) - VTE Risk Labs: VTE Related Lab Results Hgb 13.9 g/dL (14.1-18.0) L 03/18/21 06:21 Hct 44.8 % (42.0-52.0) 03/18/21 06:21 Plt Count 139 K/mm3 (142-424) L 03/18/21 06:21 PT 13.9 seconds (10.1-12.5) H 03/16/21 08:12 INR 1.25 (0.9-1.1) H 03/16/21 08:12 APTT 29.6 seconds (22.8-30.6) 03/16/21 08:12 BUN 26 mg/dl (9-20) H D 03/18/21 06:21 Creatinine 0.90 mg/dl (0.66-1.25) 03/18/21 06:21 Estimated Creat Clear 85 mL/min (50-200) 03/18/21 06:21 VTE Risk Level: Moderate Risk Clinical Trial Participant: No - Prophylaxis VTE Prophylaxis Ordered?: Yes Types of VTE Prophylaxis: TEDS Knee High Location of Applied Device: Not Applicable
--- NOTE | 2021-03-18 09:14 | P.PN_ITS ---
Subjective Patient reports: feels better, pain is less Progress Note: A&P (1) Congestive heart failure (CHF) Status: Acute (2) Diastolic dysfunction Status: Acute (3) Atrial fibrillation Status: Acute (4) HTN (hypertension) Status: Acute (5) HLD (hyperlipidemia) Status: Acute (6) AAA (abdominal aortic aneurysm) Status: Acute (7) Acute cholecystitis due to biliary calculus Status: Acute Assessment and plan: Overall, he continues to clinically improve. Continue to hold Eliquis Plan cholecystectomy tomorrow morning Exam Vital signs and Labs for Last 24 Hours: Temp Pulse Resp BP Pulse Ox 97.5 F L 72 18 98/69 L 90 L 03/18/21 08:00 03/18/21 08:00 03/18/21 08:00 03/18/21 08:00 03/18/21 08:00 Laboratory Results - last 24 hr 03/18/21 06:21: WBC 7.8, RBC 4.68, Hgb 13.9 L, Hct 44.8, MCV 95.7 H, MCH 29.7, MCHC 31.0 L, RDW 17.8 H, Plt Count 139 L, MPV 9.0, Neut % (Auto) 81.6 H, Lymph % (Auto) 9.8 L, [place] % (Auto) 4.4, Eos % (Auto) 3.4, Baso % (Auto) 0.8, Neut # (Auto) 6.4, Lymph # (Auto) 0.8, [place] # (Auto) 0.3, Eos # (Auto) 0.3, Baso # (Auto) 0.1 03/18/21 06:21: Sodium 133 L, Potassium 3.6, Chloride 93 L, Carbon Dioxide 33 H, Anion Gap 10.6, BUN 26 H D, Creatinine 0.90, Estimated Creat Clear 85, Estimated GFR 82, Est GFR ( Amer) 100, Glucose 103 H, Calcium 8.5 I & O for Last 24 hours: Intake & Output 03/15/21 03/16/21 03/17/21 03/18/21 11:59 11:59 11:59 11:59 Intake Total 820 / 820 Output Total 500 / 500 850 / 850 Balance -500 / -500 -30 / -30 Weight 200 lb 201 lb 0.985 oz 203 lb 4.259 oz - Constitutional no acute distress - *Routine Respiratory Exam Absent: respiratory distress - *Routine Cardiovascular Exam Absent: tachycardia - *Routine Abdominal Exam Present: soft
--- NOTE | 2021-03-18 09:27 | HMH.ACPN2 ---
Internal Medicine - PN: Subj *Date: 03/19/21 *Time: 06:33 Interval history: abd pain is better and surg planned for am - Exam Vital signs and Labs for Last 24 Hours: Temp Pulse Resp BP Pulse Ox 97.5 F L 72 18 98/69 L 90 L 03/18/21 08:00 03/18/21 08:00 03/18/21 08:00 03/18/21 08:00 03/18/21 08:00 Laboratory Results - last 24 hr 03/18/21 06:21: WBC 7.8, RBC 4.68, Hgb 13.9 L, Hct 44.8, MCV 95.7 H, MCH 29.7, MCHC 31.0 L, RDW 17.8 H, Plt Count 139 L, MPV 9.0, Neut % (Auto) 81.6 H, Lymph % (Auto) 9.8 L, [place] % (Auto) 4.4, Eos % (Auto) 3.4, Baso % (Auto) 0.8, Neut # (Auto) 6.4, Lymph # (Auto) 0.8, [place] # (Auto) 0.3, Eos # (Auto) 0.3, Baso # (Auto) 0.1 03/18/21 06:21: Sodium 133 L, Potassium 3.6, Chloride 93 L, Carbon Dioxide 33 H, Anion Gap 10.6, BUN 26 H D, Creatinine 0.90, Estimated Creat Clear 85, Estimated GFR 82, Est GFR ( Amer) 100, Glucose 103 H, Calcium 8.5 I & O for Last 24 hours: Intake & Output 03/15/21 03/16/21 03/17/21 03/18/21 11:59 11:59 11:59 11:59 Intake Total 820 / 820 Output Total 500 / 500 850 / 850 Balance -500 / -500 -30 / -30 Weight 200 lb 201 lb 0.985 oz 203 lb 4.259 oz - Constitutional no acute distress - *Routine HEENT Exam Head: Present: normocephalic Eye: Present: EOMI, PERRL ENT: Present: mucous membranes dry - *Routine Neck Exam Absent: JVD - *Routine Respiratory Exam Present: CTA bilaterally - *Routine Cardiovascular Exam Present: RRR - *Routine Abdominal Exam Present: soft - *Routine Extremities Exam Present: pulses intact - *Routine Skin Exam Present: intact - *Routine Neurological Exam Present: alert, CN II-XII intact - Routine Psychiatric Exam Present: normal affect Assessment and Plan (1) Congestive heart failure (CHF) Status: Acute Category: Medical Code(s): I50.9 - Heart failure, unspecified (2) Diastolic dysfunction Status: Acute Category: Medical Code(s): I51.89 - Other ill-defined heart diseases (3) Atrial fibrillation Status: Acute Category: Medical Code(s): I48.91 - Unspecified atrial fibrillation (4) HTN (hypertension) Status: Acute Category: Medical Code(s): I10 - Essential (primary) hypertension (5) HLD (hyperlipidemia) Status: Acute Category: Medical Code(s): E78.5 - Hyperlipidemia, unspecified (6) AAA (abdominal aortic aneurysm) Status: Acute Category: Medical Code(s): I71.4 - Abdominal aortic aneurysm, without rupture (7) Acute cholecystitis due to biliary calculus Status: Acute Category: Medical Code(s): K80.00 - Calculus of gallbladder with acute cholecystitis without obstruction
[2021-03-19] VITALS (25 sets, daily range): BP systolic 106–166; BP diastolic 59–98; PULSE 55–113; RESP 16–20; TEMP 36.4–43; O2SAT 88–100; BMI 30.1
[2021-03-19 01:57] LABS: Basophils # 0.1 K/mm3 (0-0.2); Basophils % 1.1 % (0.1-2.0); Eosinophils # 0.3 K/mm3 (0.0-0.4); Eosinophils % 4.8 % (0.1-12.0); Hematocrit 43.4 % (42.0-52.0); Hemoglobin 13.5 g/dL (14.1-18.0); Lymphocytes # 0.9 K/mm3 (0.7-4.5); Lymphocytes % 13.7 % (10-50); Mean Corpuscular HGB Conc 31.2 g/dL (31.8-35.4); Mean Corpuscular Hemoglobin 29.4 pg (27.0-31.2); Mean Platelet Volume 9.1 fl (7.4-10.4); Monocytes # 0.3 K/mm3 (0.1-1.0); Monocytes % 4.1 % (1.7-9.3); Neutrophils # 5.1 K/mm3 (1.8-7.8); Neutrophils % 76.3 % (37.0-80.0); Platelet Count 167 K/mm3 (142-424); Red Blood Count 4.61 M/mm3 (4.60-6.20); Red Cell Distribution Width 17.7 % (11.5-17.5); White Blood Count 6.6 K/mm3 (4.8-10.8)
[2021-03-19 02:10] LABS: Anion Gap 9.4 mEq/L (5-15); Blood Urea Nitrogen 31 mg/dl (9-20); Calcium 8.9 mg/dl (8.4-10.2); Carbon Dioxide 33 mmol/L (22.0-30.0); Chloride 93 mmol/L (98-107); Creatinine Clearance Estimated 85 mL/min (50-200); Estimated Glomerular Filt Rate 82 ml/min (>60); GFR (African American) 100 ML/MIN (>60); Glucose 103 mg/dl (74-100); Potassium 3.4 mmoL/L (3.5-5.1); Sodium 132 mmol/L (136-145)
--- NOTE | 2021-03-19 05:09 | PC.NURSE ---
patient off floor to surgery @ this time.
--- NOTE | 2021-03-19 05:19 | P.PN_ITS ---
Subjective Patient reports: no new complaints, feels better Narrative: States that he is feeling pretty good and ready for surgery . Progress Note: A&P (1) Congestive heart failure (CHF) Status: Acute (2) Diastolic dysfunction Status: Acute (3) Atrial fibrillation Status: Acute (4) HTN (hypertension) Status: Acute (5) HLD (hyperlipidemia) Status: Acute (6) AAA (abdominal aortic aneurysm) Status: Acute (7) Acute cholecystitis due to biliary calculus Status: Acute Assessment and plan: Laparoscopic cholecystectomy planned for this morning. I have discussed the risks and benefits including, but not limited to: Bleeding Infection Damage to surrounding tissue Inherent risks of sedation The patient agrees to proceed. Exam Vital signs and Labs for Last 24 Hours: Temp Pulse Resp BP Pulse Ox 98.0 F 90 18 141/90 H 95 03/19/21 04:00 03/19/21 04:00 03/19/21 04:00 03/19/21 04:00 03/19/21 04:00 Laboratory Results - last 24 hr 03/18/21 06:21: WBC 7.8, RBC 4.68, Hgb 13.9 L, Hct 44.8, MCV 95.7 H, MCH 29.7, MCHC 31.0 L, RDW 17.8 H, Plt Count 139 L, MPV 9.0, Neut % (Auto) 81.6 H, Lymph % (Auto) 9.8 L, [place] % (Auto) 4.4, Eos % (Auto) 3.4, Baso % (Auto) 0.8, Neut # (Auto) 6.4, Lymph # (Auto) 0.8, [place] # (Auto) 0.3, Eos # (Auto) 0.3, Baso # (Auto) 0.1 03/18/21 06:21: Sodium 133 L, Potassium 3.6, Chloride 93 L, Carbon Dioxide 33 H, Anion Gap 10.6, BUN 26 H D, Creatinine 0.90, Estimated Creat Clear 85, Estimated GFR 82, Est GFR ( Amer) 100, Glucose 103 H, Calcium 8.5 03/19/21 01:50: WBC 6.6, RBC 4.61, Hgb 13.5 L, Hct 43.4, MCV 94.0, MCH 29.4, MCHC 31.2 L, RDW 17.7 H, Plt Count 167, MPV 9.1, Neut % (Auto) 76.3, Lymph % (Auto) 13.7, [place] % (Auto) 4.1, Eos % (Auto) 4.8, Baso % (Auto) 1.1, Neut # (Auto) 5.1, Lymph # (Auto) 0.9, [place] # (Auto) 0.3, Eos # (Auto) 0.3, Baso # (Auto) 0.1 03/19/21 01:50: Sodium 132 L, Potassium 3.4 L, Chloride 93 L, Carbon Dioxide 33 H, Anion Gap 9.4, BUN 31 H, Creatinine 0.90, Estimated Creat Clear 85, Estimated GFR 82, Est GFR ( Amer) 100, Glucose 103 H, Calcium 8.9 I & O for Last 24 hours: Intake & Output 03/16/21 03/17/21 03/18/21 03/19/21 11:59 11:59 11:59 11:59 Intake Total 820 / 820 360 / 360 Output Total 500 / 500 850 / 850 1050 / 1050 Balance -500 / -500 -30 / -30 -690 / -690 Weight 200 lb 201 lb 0.985 oz 203 lb 4.259 oz 198 lb 9.6 oz - Constitutional no acute distress - *Routine Respiratory Exam Absent: respiratory distress - *Routine Cardiovascular Exam Absent: tachycardia - *Routine Abdominal Exam Present: soft
--- NOTE | 2021-03-19 05:55 | HMH.ANESCL ---
[facility] Anesthesia Checklist - Patient Identification Patient Identification: Arm Band - Structural Data Admitted From: Inpatient Planned Operative Procedure/s: Laparoscopic Cholecystectomy Consent for Planned Operative Procedure(s) Verified: Yes Verified Documents: Surgical Consent, History and Physical - NPO Status Verified Time NPO: 00:00 - Additional verifications Anesthesia Reactions: No - Airway Assessment C-Spine Mobility Assessed: Yes (mp3) TMJ Mobility Assessed: Yes Dentition: Poor Dentition - Neurological Assessment Level of Consciousness: Awake, Alert - Anesthesia Plan Anesthesia Risk discussed: Yes Anesthesia Plan: Verified ASA Class: III Anesthesia Type: General [facility] History I have reviewed the patient's past medical history: Yes Medical History: Reports:: Arrhythmia, Atrial Fibrillation, Cancer, Coronary Artery Disease, Hyperlipidemia, Hypertension *Have you ever received a pneumonia vaccine?: No *Have you received a flu vaccine this season?: Yes Anesthesia experience/problems:: nac Other Surgeries: Yes: Cardiac Surgery, Coronary Stent - *Social History Last grade of school completed: High school graduate Smoking Status: Current every day smoker Alcohol Intake: never Alcohol Intake Frequency:: other Substance Use Type: denies use *Occupational Status:: retired Housing: house Household Members: spouse *Travel in the last 8 weeks: Inside the [facility] Family Hx:: Unable to obtain
--- NOTE | 2021-03-19 06:50 | P.OP_ITS ---
Date of procedure: 03/19/21 Pre-op Diagnosis:: Acute calculus cholecystitis Post-op Diagnosis:: Same Procedure performed:: Laparoscopic cholecystectomy Surgeon:: Paulino Evans MD Inspection Machine Tender(s):: Francisco PHYSIOTHERAPY PRACTICE MANAGER:: Pepe John Anesthesia: GETA Estimated blood loss (mL): 25 Operative findings:: Gallbladder distention Severe gallbladder inflammatory changes Patchy necrosis along gallbladder dome Operative note:: After informed consent was obtained, the patient was taken to the operating room and placed in the supine position. General anesthesia was induced and the abdomen was prepped and draped in a sterile fashion. After infiltration with local anesthetic an infraumbilical incision was made. A Veress needle was placed in position. The abdomen was insufflated. A 5 mm optical trocar was placed in position. Under direct visualization, a 12 mm trocar was placed in the subxiphoid position and 2 additional 5 mm trocars were placed in the right upper quadrant. Severe inflammatory changes were noted and and around the gallbladder fossa. The omentum, colon, small bowel, and stomach were adhered to the gallbladder. Blunt dissection was used to carefully free the gallbladder from surrounding tissue as the adhesions were taken down. Distention of the gallbladder and severe inflammation were confirmed. Patchy necrosis along the dome was also seen. The gallbladder was elevated up and over the liver margin. The severely thickened/inflamed tissue around the cystic duct was carefully dissected. 3 clips were placed proximally and the duct was transected with harmonic wendy. Harmonic wendy were then utilized to dissect the gallbladder away from the liver margin with careful attention to the control of the cystic artery. The gallbladder was placed in a retrieval bag and removed through the subxiphoid trocar site after lateral extension of the incision was completed sh arply. The right upper quadrant was thoroughly irrigated. No active bleeding or bile leak was noted. Fascia at the subxiphoid trocar site was reapproximated utilizing 0 Ethibond. The remaining trocars were removed. All wounds were irrigated and skin was closed with faustino. Steri-Strips were applied. The patient's anesthetic agents were reversed and extubation was completed prior to transfer to recovery in stable condition. Condition: stable Disposition: PACU Specimens:: Gallbladder Complications:: No immediate
--- NOTE | 2021-03-19 06:58 | HMH.ANESI ---
[facility] Anesthesia Record Part I Intake, IV Amount: 1,000 Estimated blood loss (mL): 25 Urine output (mL): 0 Blood Pressure: 110/70 SaO2: 93 Pulse Rate: 110 Respiratory Rate: 16 Temperature: 98.9 F Patient is:: Drowsy, Stable Stable to PACU at:: 06:51
--- NOTE | 2021-03-19 07:07 | P.PN_ITS ---
Internal Medicine - PN: Subj *Date: 03/20/21 *Time: 02:45 Interval history: in surg this am for gb surg Exam Vital signs and Labs for Last 24 Hours: Temp Pulse Resp BP Pulse Ox 98.9 F 110 H 16 110/70 95 03/19/21 06:59 03/19/21 06:59 03/19/21 06:59 03/19/21 06:59 03/19/21 04:00 Laboratory Results - last 24 hr 03/18/21 06:21: Sodium 133 L, Potassium 3.6, Chloride 93 L, Carbon Dioxide 33 H, Anion Gap 10.6, BUN 26 H D, Creatinine 0.90, Estimated Creat Clear 85, Estimated GFR 82, Est GFR ( Amer) 100, Glucose 103 H, Calcium 8.5 03/19/21 01:50: WBC 6.6, RBC 4.61, Hgb 13.5 L, Hct 43.4, MCV 94.0, MCH 29.4, MCHC 31.2 L, RDW 17.7 H, Plt Count 167, MPV 9.1, Neut % (Auto) 76.3, Lymph % (Auto) 13.7, [place] % (Auto) 4.1, Eos % (Auto) 4.8, Baso % (Auto) 1.1, Neut # (Auto) 5.1, Lymph # (Auto) 0.9, [place] # (Auto) 0.3, Eos # (Auto) 0.3, Baso # (Auto) 0.1 03/19/21 01:50: Sodium 132 L, Potassium 3.4 L, Chloride 93 L, Carbon Dioxide 33 H, Anion Gap 9.4, BUN 31 H, Creatinine 0.90, Estimated Creat Clear 85, Estimated GFR 82, Est GFR ( Amer) 100, Glucose 103 H, Calcium 8.9 I & O for Last 24 hours: Intake & Output 03/16/21 03/17/21 03/18/21 03/19/21 11:59 11:59 11:59 11:59 Intake Total 820 / 820 1360 / 1360 Output Total 500 / 500 850 / 850 1050 / 1050 Balance -500 / -500 -30 / -30 310 / 310 Weight 200 lb 201 lb 0.985 oz 203 lb 4.259 oz 198 lb 9.6 oz - Constitutional no acute distress - *Routine HEENT Exam Head: Present: normocephalic Eye: Present: EOMI, PERRL ENT: Present: mucous membranes dry - *Routine Neck Exam Absent: JVD - *Routine Respiratory Exam Absent: respiratory distress - *Routine Cardiovascular Exam Present: RRR - *Routine Abdominal Exam Present: soft - *Routine Extremities Exam Absent: calf tenderness - *Routine Skin Exam Present: intact - *Routine Neurological Exam Present: alert, CN II-XII intact - Routine Psychiatric Exam Present: normal affect Assessment and Plan (1) Congestive heart failure (CHF) Status: Acute Category: Medical Code(s): I50.9 - Heart failure, unspecified (2) Diastolic dysfunction Status: Acute Category: Medical Code(s): I51.89 - Other ill-defined heart diseases (3) Atrial fibrillation Status: Acute Category: Medical Code(s): I48.91 - Unspecified atrial fibrillation (4) HTN (hypertension) Status: Acute Category: Medical Code(s): I10 - Essential (primary) hypertension (5) HLD (hyperlipidemia) Status: Acute Category: Medical Code(s): E78.5 - Hyperlipidemia, unspecified (6) AAA (abdominal aortic aneurysm) Status: Acute Category: Medical Code(s): I71.4 - Abdominal aortic aneurysm, without rupture (7) Acute cholecystitis due to biliary calculus Status: Acute Category: Medical Code(s): K80.00 - Calculus of gallbladder with acute cholecystitis without obstruction (8) Obesity (BMI 30.0-34.9) Status: Acute Category: Medical Code(s): E66.9 - Obesity, unspecified
--- NOTE | 2021-03-19 11:26 | HMH.ACPN ---
Internal Medicine - PN: Subj *Date: 03/19/21 *Time: 11:26 Exam Vital signs and Labs for Last 24 Hours: Temp Pulse Resp BP Pulse Ox 98.9 F 80 18 132/76 94 L 03/19/21 07:21 03/19/21 08:00 03/19/21 07:21 03/19/21 07:21 03/19/21 07:21 Laboratory Results - last 24 hr 03/19/21 01:50: WBC 6.6, RBC 4.61, Hgb 13.5 L, Hct 43.4, MCV 94.0, MCH 29.4, MCHC 31.2 L, RDW 17.7 H, Plt Count 167, MPV 9.1, Neut % (Auto) 76.3, Lymph % (Auto) 13.7, [place] % (Auto) 4.1, Eos % (Auto) 4.8, Baso % (Auto) 1.1, Neut # (Auto) 5.1, Lymph # (Auto) 0.9, [place] # (Auto) 0.3, Eos # (Auto) 0.3, Baso # (Auto) 0.1 03/19/21 01:50: Sodium 132 L, Potassium 3.4 L, Chloride 93 L, Carbon Dioxide 33 H, Anion Gap 9.4, BUN 31 H, Creatinine 0.90, Estimated Creat Clear 85, Estimated GFR 82, Est GFR ( Amer) 100, Glucose 103 H, Calcium 8.9 I & O for Last 24 hours: Intake & Output 03/16/21 03/17/21 03/18/21 03/19/21 23:59 23:59 23:59 23:59 Intake Total 600 / 600 580 / 580 1000 / 1000 Output Total 500 / 500 425 / 425 1000 / 1200 475 / 475 Balance -500 / -500 175 / 175 -420 / -620 525 / 525 Weight 90.832 kg 91.21 kg 92.2 kg 90.083 kg Assessment and Plan (1) Congestive heart failure (CHF) Status: Acute Category: Medical Code(s): I50.9 - Heart failure, unspecified (2) Diastolic dysfunction Status: Acute Category: Medical Code(s): I51.89 - Other ill-defined heart diseases (3) Atrial fibrillation Status: Acute Category: Medical Code(s): I48.91 - Unspecified atrial fibrillation (4) HTN (hypertension) Status: Acute Category: Medical Code(s): I10 - Essential (primary) hypertension (5) HLD (hyperlipidemia) Status: Acute Category: Medical Code(s): E78.5 - Hyperlipidemia, unspecified (6) AAA (abdominal aortic aneurysm) Status: Acute Category: Medical Code(s): I71.4 - Abdominal aortic aneurysm, without rupture (7) Acute cholecystitis due to biliary calculus Status: Acute Category: Medical Code(s): K80.00 - Calculus of gallbladder with acute cholecystitis without obstruction The patient's infection will respond to the chosen ABx?: Yes Is the patient receiving the right drug, dose, and route?: Yes Could a more targeted ABx be ordered?: No (WBC WNL; AFEBRILE.)
--- NOTE | 2021-03-19 21:28 | PC.NURSE ---
Put compression socks on and scds
[2021-03-20] VITALS: BP 134/80; PULSE 70; PULSE 90; RESP 16; TEMP 36.4; O2SAT 96
[2021-03-20 04:00] VITALS: BP 152/93; PULSE 65; PULSE 70; RESP 16; TEMP 36.6; O2SAT 94
[2021-03-20 05:20] VITALS: BMI 32.1
--- NOTE | 2021-03-20 06:23 | PC.NURSE ---
Patient rested fair through night. VSS. Remains on 1L per NC. attempted to titrated but patient would intermittent desat into mid 80s with sleep, left on 1L per NC. No c/o pain. Adequate intake and output. Refused to ambulate this shift. Four lap sites to abdomen CDI.
[2021-03-20 07:02] LABS: Basophils % 0.3 % (0.1-2.0); Eosinophils # 0.1 K/mm3 (0.0-0.4); Eosinophils % 1.3 % (0.1-12.0); Hemoglobin 13.1 g/dL (14.1-18.0); Lymphocytes # 0.9 K/mm3 (0.7-4.5); Lymphocytes % 13.4 % (10-50); Mean Corpuscular HGB Conc 31.1 g/dL (31.8-35.4); Mean Corpuscular Hemoglobin 29.8 pg (27.0-31.2); Mean Corpuscular Volume 95.8 fl (80-94); Mean Platelet Volume 8.5 fl (7.4-10.4); Monocytes # 0.3 K/mm3 (0.1-1.0); Monocytes % 4.5 % (1.7-9.3); Neutrophils # 5.4 K/mm3 (1.8-7.8); Neutrophils % 80.4 % (37.0-80.0); Platelet Count 179 K/mm3 (142-424); Red Blood Count 4.38 M/mm3 (4.60-6.20); Red Cell Distribution Width 17.4 % (11.5-17.5); White Blood Count 6.7 K/mm3 (4.8-10.8)
[2021-03-20 07:06] LABS: Chloride 97 mmol/L (98-107); Sodium 135 mmol/L (136-145)
[2021-03-20 07:07] LABS: Potassium 4.2 mmoL/L (3.5-5.1)
[2021-03-20 07:09] LABS: Blood Urea Nitrogen 22 mg/dl (9-20); Creatinine Clearance Estimated 88 mL/min (50-200); Estimated Glomerular Filt Rate 94 ml/min (>60); GFR (African American) 114 ML/MIN (>60)
[2021-03-20 07:10] LABS: Anion Gap 10.2 mEq/L (5-15); Calcium 8.3 mg/dl (8.4-10.2); Carbon Dioxide 32 mmol/L (22.0-30.0); Glucose 110 mg/dl (74-100)
[2021-03-20 07:59] VITALS: BP 157/92; PULSE 75; RESP 20; TEMP 36.4; O2SAT 95
[2021-03-20 08:00] VITALS: PULSE 83; O2SAT 95
--- NOTE | 2021-03-20 08:57 | HMH.GSPN ---
Subjective Patient reports: no new complaints Progress Note: A&P (1) Congestive heart failure (CHF) Status: Acute (2) Diastolic dysfunction Status: Acute (3) Atrial fibrillation Status: Acute (4) HTN (hypertension) Status: Acute (5) HLD (hyperlipidemia) Status: Acute (6) AAA (abdominal aortic aneurysm) Status: Acute (7) Acute cholecystitis due to biliary calculus Status: Acute Assessment and plan: Overall, doing well status post laparoscopic cholecystectomy for fairly severe acute cholecystitis. Okay from surgical standpoint for discharge with close outpatient follow-up Okay from surgical standpoint to restart Jennifer (8) Obesity (BMI 30.0-34.9) Status: Acute Exam Vital signs and Labs for Last 24 Hours: Temp Pulse Resp BP Pulse Ox 97.5 F L 75 20 157/92 H 95 03/20/21 07:59 03/20/21 07:59 03/20/21 07:59 03/20/21 07:59 03/20/21 07:59 Laboratory Results - last 24 hr 03/20/21 06:25: WBC 6.7, RBC 4.38 L, Hgb 13.1 L, Hct 42.0, MCV 95.8 H, MCH 29.8, MCHC 31.1 L, RDW 17.4, Plt Count 179, MPV 8.5, Neut % (Auto) 80.4 H, Lymph % (Auto) 13.4, [place] % (Auto) 4.5, Eos % (Auto) 1.3, Baso % (Auto) 0.3, Neut # (Auto) 5.4, Lymph # (Auto) 0.9, [place] # (Auto) 0.3, Eos # (Auto) 0.1, Baso # (Auto) 0.0 03/20/21 06:25: Sodium 135 L, Potassium 4.2 D, Chloride 97 L, Carbon Dioxide 32 H, Anion Gap 10.2, BUN 22 H D, Creatinine 0.80, Estimated Creat Clear 88, Estimated GFR 94, Est GFR ( Amer) 114, Glucose 110 H, Calcium 8.3 L I & O for Last 24 hours: Intake & Output 03/17/21 03/18/21 03/19/21 03/20/21 11:59 11:59 11:59 11:59 Intake Total 820 / 820 1360 / 1360 1000 / 1000 Output Total 500 / 500 850 / 850 1050 / 1050 1400 / 1400 Balance -500 / -500 -30 / -30 310 / 310 -400 / -400 Weight 201 lb 0.985 oz 203 lb 4.259 oz 198 lb 9.6 oz 211 lb 9.6 oz - Constitutional no acute distress - *Routine Respiratory Exam Absent: respiratory distress - *Routine Cardiovascular Exam Absent: tachycardia - *Routine Abdominal Exam Present: soft Comments: Dressings intact. No cellulitis.
--- NOTE | 2021-03-20 09:04 | HMH.DCSUM ---
General - General Admission date:: 03/16/21 Discharge date: 03/20/21 HPI HPI: Patient is a 75-year-old male with medical history of coronary artery disease status post CABG, hypertension presenting to the ED of breath and right-sided abdominal pain. Patient states that his main concern is the right-sided abdominal pain that has been progressively worsening. States that the pain is cyclical in nature, nothing makes it better or worse. Pain is associated with nausea, patient has not had any vomiting. Patient states that months ago he was admitted at the [place] for similar symptoms and at that point started on diuretics. Patient states that he has not been taking his diuretics. Patient states that he has been feeling short of breath is also been progressively worsening. In triage patient was noted to be hypoxic saturating 88% and placed on 3 L of oxygen. This ia new requirement for the patient. 03/16/21 CXR: IMPRESSION: Low lung volumes with cardiomegaly and small bilateral pleural effusions Dictated by: Lavell Frost MD 03/16/21 Abd/Pelvic CT: FINDINGS: Inferior thorax: Interstitial and trace airspace disease. Pleural thickening with dense left pleural and diaphragmatic calcification, along with fat containing hernia in the left lateral inferior thorax. Cardiomegaly and coronary artery calcification. Liver: Fatty infiltration of the liver with focal sparing about the gallbladder fossa. Gallbladder and bile ducts: Gallbladder dilatation with cholelithiasis, echoge high attenuation bile, and infiltration of pericholecystic fat. No biliary ductal dilatation. Pancreas: No pancreatic mass or ductal dilatation. Spleen: Spleen upper limits of normal size. Adrenal glands: Unremarkable adrenals. Kidneys and ureters: 4 mm nodular hypodensity in the left kidney which is too small to accurately characterize. No hydronephrosis. Stomach and bowel: Marked gastric wall thickening. Small bowel dilatation without a focal transition zone. Colonic dilatation with prominent stool. Diverticula, without pericolonic inflammation. Appendix: No acute appendicitis. Intraperitoneal space: Small quantity of dependent free fluid in the pelvis, along with a 10 mm calcification in the midline. Vasculature: 3.9 cm infrarenal fusiform infrarenal abdominal aortic aneurysm, with prominent crescentic thrombus and vascular calcification. Celiac and superior mesenteric artery stents. Lymph nodes: Subcentimeter lymph nodes. Urinary bladder: Mild bladder wall thickening. Reproductive: Punctate prostate calcifications. Bones/joints: Median sternotomy. Osteopenia and chronic compression fractures in the spine. Degenerative change, disc bulging, and mild scoliosis. Soft tissues: Multifocal postoperative change in the abdominal wall. Subcutaneous emphysema in the right anterior abdominal wall. IMPRESSION: 1. Gallbladder dilatation with cholelithiasis, echoge high attenuation bile, and infiltration of pericholecystic fat. 2. 3.9 cm infrarenal fusiform infrarenal abdominal aortic aneurysm, with prominent crescentic thrombus and vascular calcification. 3. Marked gastric wall thickening. 4. Additional findings as described above. Electronically signed by Bola Pollock MD 75-year-old patient lying in bed resting quietly, she reports pain is been controlled during the night and reports only slight abdominal tenderness this morning. Plan for surgery this afternoon, patient requesting diet explained to patient purpose of n.p.o. before surgery, patient verbalized understanding. He has received doses of Zosyn and cefazolin IV during inpatient. Cardiology following and general surgery following. Hospital Course Hospital Course: pt has seen by surg-alculus of gallbladder with acute cholecystitis without obstruction Final management decision pending results of cardiology evaluation. If he is deemed appropr
--- NOTE | 2021-03-22 10:05 | HMH.ANESII ---
[facility] Anesthesia Record Part II Discharge Time: 07:21 Destination: Medical Surgical Department PACU nurse assessment reviewed?: Yes Patient Condition:: Good Anesthesia Complications:: None Swallowing reflex intact?: Yes Cyanosis?: No Blood Pressure: 132/76 Pulse Rate: 85 Temperature: 98.9 F Mental Status: Alert & Oriented Pain level:: 0 Nausea and/or vomitting:: None Intake, IV Amount: 0
[2021-03-22 10:06] VITALS: BP 132/76; PULSE 85; TEMP 37.2
== END 2021-03-20 09:50 | disposition home or self-care (01) ==
LOC: ER 12:39 → 2ND 12:49
PROVIDERS: Nurse Practitioner Family; Surgery; Admitting Provider Emergency Medicine; Emergency Provider Emergency Medicine; Visit Provider Emergency Medicine
PROC: 0FT44ZZ Resection of Gallbladder, Percutaneous Endoscopic Approach (ICD-10-PCS; CPT 47562; principal; 2021-03-19 05:30)
DX: K80.00 Calculus of gallbladder with acute cholecystitis without obstruction; Z20.822 Contact with and (suspected) exposure to COVID-19; I71.4 Abdominal aortic aneurysm, without rupture; E78.5 Hyperlipidemia, unspecified; I48.91 Unspecified atrial fibrillation; Z79.01 Long term (current) use of anticoagulants; I50.32 Chronic diastolic (congestive) heart failure; Z95.828 Presence of other vascular implants and grafts; Z95.1 Presence of aortocoronary bypass graft; I25.10 Atherosclerotic heart disease of native coronary artery without angina pectoris; Z95.5 Presence of coronary angioplasty implant and graft; F17.210 Nicotine dependence, cigarettes, uncomplicated; I11.0 Hypertensive heart disease with heart failure
CPT/HCPCS: 47562; G0378; 36415; 71045; 74177; 80048; 80053; 82803; 83605; 83690; 83880; 84484; 85007; 85025; 85610; 85730; 88304; 93005; 93306; 96365; 96375; 99284; C9803; J2405; J2543; J2710; Q9967; U0003; U0005

== ENCOUNTER 2021-11-20 10:20 | Emergency (ER) | payer MEDICARE, SELFPAY ==
[2021-11-20 10:22] VITALS: BP 145/90; PULSE 90; RESP 20; TEMP 36.6; O2SAT 98; BMI 31.9
--- NOTE | 2021-11-20 10:49 | ECG_ITS ---
APPROVED REPORT Exam: Resting ECG HR:85 bpm ECG Measurements Heart Rate 85 AXES QRSd 138 QRS 1 QT 394 T 196 QTc 436 Conclusion ATRIAL FIBRILLATION RIGHT BUNDLE BRANCH BLOCK [120+ ms QRS DURATION, UPRIGHT V1, 40+ ms S IN I/aVL/V4/V5/V6] MODERATE T-WAVE ABNORMALITY, CONSIDER LATERAL ISCHEMIA [-0.1+ mV T-WAVE IN I/aVL/V5/V6] MODERATE T-WAVE ABNORMALITY, CONSIDER INFERIOR ISCHEMIA [-0.1+ mV T-WAVE IN II/aVF] ABNORMAL ECG UNCONFIRMED REPORT Electronically signed by : Johnson Salter MD 11/21/2021 20:11:22
--- NOTE | 2021-11-20 10:59 | PC.NURSE ---
paged dr jang and dr ferrara sent ekg to him
[2021-11-20 11:00] VITALS: BP 142/102; PULSE 68; RESP 18; O2SAT 94
--- NOTE | 2021-11-20 11:03 | PC.NURSE ---
Dr Wheatley spoke with dr jang
--- NOTE | 2021-11-20 11:03 | HMH.EDGENADL ---
Discharge Plan Disposition Patient Disposition: Home, Self-Care Condition: Good Chief Complaint: Weakness Prescriptions Prescriptions: No Action rosuvastatin 40 MG tablet 40 mg PO HS metoprolol tartrate 100 MG tablet 150 mg PO BID isosorbide mononitrate 30 MG tablet extended release 24 hr 30 mg PO DAILY omeprazole 20 MG capsule,delayed release(DR/EC) 20 mg PO BID cholecalciferol (vitamin D3) 25 MCG tablet 25 mcg PO BID methotrexate sodium 2.5 MG tablet 12.5 mg PO WEEKLY folic acid 1 MG tablet 1 mg PO DAILY finasteride 5 MG tablet 5 mg PO DAILY adalimumab 40 MG/0.4 ML syringe kit 40 mg SQ QOW furosemide 40 MG tablet 40 mg PO DAILY Qty: 30 0RF apixaban 5 MG tablet 5 mg PO BID 0RF Activity Restrictions/Add. Instructions Additional Instructions/Restrictions: Follow-up with your doctors at the [facility]. Call tomorrow to arrange appointments. Return to the emergency department if weakness returns or or if any new symptoms such as worsening shortness of breath, chest pain, or return of jaw pain. Clinical Impressions Clinical Impression: Episode of generalized weakness Discharge ED Provider: David Wheatley General Adult HPI General Chief complaint: Weakness Stated complaint: hasn't eaten in 2 days,dizzy,low BP Time Seen by Provider: 11/20/21 10:55 History of Present Illness HPI narrative: Patient states that he feels generally weak and dizzy today. States he woke up at 4 AM with the symptoms. States he has fallen a couple of times. Denies chest pain. He has had some shortness of breath chronically, dyspnea on exertion, says that he has been recently treated by the [facility] for fluid on his lungs. He was on Lasix on an as-needed basis, but a month ago on a cardiology televisit he was told to take it every day. However, he says that it caused some weeping and sores in his legs and he stopped taking it every day a couple of weeks ago. Denies any chest pain. He says that he has had some jaw pain 2 times this month, with most recently 1 day last week. States it only lasted a couple of minutes. No current jaw pain. His caretakers are at the [facility] in [place]. He is scheduled to have a chemical stress echo test on December 02. Related Data Home Medications Medication Instructions Recorded Confirmed adalimumab 40 mg/0.4 mL 40 mg SQ QOW RHEUMATOID ARTHRITIS 03/16/21 03/30/21 subcutaneous syringe kit cholecalciferol (vitamin D3) 25 25 mcg PO BID Supplement 03/16/21 03/30/21 mcg (1,000 unit) tablet finasteride 5 mg tablet 5 mg PO DAILY PROSTATE 03/16/21 03/30/21 folic acid 1 mg tablet 1 mg PO DAILY Supplement 03/16/21 03/30/21 isosorbide mononitrate 30 mg 30 mg PO DAILY BLOOD PRESSURE 03/16/21 03/30/21 tablet,extended release 24 hr methotrexate sodium 2.5 mg tablet 12.5 mg PO WEEKLY Arthritis 03/16/21 03/30/21 metoprolol tartrate 100 mg tablet 150 mg PO BID BLOOD PRESSURE 03/16/21 03/30/21 omeprazole 20 mg capsule,delayed 20 mg PO BID GERD 03/16/21 03/30/21 release rosuvastatin 40 mg tablet 40 mg PO HS Cholesterol 03/16/21 03/30/21 Previous Rx's Medication Instructions Recorded apixaban 5 mg tablet 5 mg PO BID 03/20/21 furosemide 40 mg tablet 40 mg PO DAILY #30 tabs 03/20/21 Allergies Allergy/AdvReac Type Severity Reaction Status Date / Time No Known Allergies Allergy Unverified 03/30/21 08:56 [facility] Social History (Updated 11/20/21 @ 12:42 by Jessica Scott RN) Smoking Status: Former smoker alcohol intake: never substance use type: denies use current occupational status: retired and other Travel in the last 8 weeks: None household members: spouse housing: house ROS Obtained: Yes Systems reviewed as appropriate & no additional complaints except as documented Constitutional Constitutional: Reports weakness Cardiovascular Cardiovascular: Denies chest pain Respiratory Resp
--- NOTE | 2021-11-20 11:20 | XR_ITS ---
PROCEDURE INFORMATION: Exam: XR Chest Exam date and time: 11/20/2021 11:34 AM Age: 75 years old Clinical indication: Shortness of breath; Additional info: SOB TECHNIQUE: Imaging protocol: Radiologic exam of the chest. Views: 1 view. COMPARISON: CR XR CHEST PORTABLE 03/16/2021 8:25 AM FINDINGS: Lungs: Hypoinflation and interstitial prominence. Pleural spaces: Prominent left basilar airspace/pleural disease partially obscuring the left hemidiaphragm. Mild right pleural thickening and/or small effusion. Heart/Mediastinum: No cardiomegaly. Bones/joints: Osteopenia and degenerative change. Median sternotomy. IMPRESSION: 1. Prominent left basilar airspace/pleural disease partially obscuring the left hemidiaphragm. 2. Additional findings as described above.
[2021-11-20 11:27] LABS: Coronavirus 19, PCR Not Detected (NotDetected); Influenza A, PCR Not Detected (NotDetected); Influenza B, PCR Not Detected (NotDetected)
[2021-11-20 11:29] LABS: Basophils % 0.5 % (0.1-2.0); Eosinophils # 0.1 K/mm3 (0.0-0.4); Eosinophils % 2.4 % (0.1-12.0); Hematocrit 40.4 % (42.0-52.0); Hemoglobin 12.5 g/dL (14.1-18.0); Lymphocytes # 1.4 K/mm3 (0.7-4.5); Lymphocytes % 23.1 % (10-50); Mean Corpuscular Hemoglobin 28.6 pg (27.0-31.2); Mean Corpuscular Volume 92.3 fl (80-94); Mean Platelet Volume 9.1 fl (7.4-10.4); Monocytes # 0.2 K/mm3 (0.1-1.0); Monocytes % 2.6 % (1.7-9.3); Neutrophils # 4.2 K/mm3 (1.8-7.8); Neutrophils % 71.3 % (37.0-80.0); Platelet Count 254 K/mm3 (142-424); Red Blood Count 4.38 M/mm3 (4.60-6.20); Red Cell Distribution Width 21.3 % (11.5-17.5); White Blood Count 5.9 K/mm3 (4.8-10.8)
[2021-11-20 11:30] VITALS: BP 142/97; PULSE 74; RESP 18; O2SAT 99
[2021-11-20 11:36] LABS: Alanine Aminotransferase 30 U/L (12-78); Albumin Level 3.3 g/dl (3.5-5.0); Albumin/Globulin Ratio 0.9 (1.1-1.8); Alkaline Phosphatase 81 U/L (38-126); Aspartate Amino Transferase 46 U/L (17-59); Bilirubin,Total 1.6 mg/dl (0.2-1.3); Blood Urea Nitrogen 21 mg/dl (9-20); Calcium 8.9 mg/dl (8.4-10.2); Carbon Dioxide 28 mmol/L (22.0-30.0); Chloride 100 mmol/L (98-107); Creatinine Clearance Estimated 87 mL/min (50-200); Estimated Glomerular Filt Rate 73 ml/min (>60); GFR (African American) 88 ML/MIN (>60); Globulin 3.6 g/dL (1.3-3.2); Glucose 116 mg/dl (74-100); Potassium 5.2 mmoL/L (3.5-5.1); Total Protein,Serum 6.9 g/dl (6.3-8.2)
[2021-11-20 11:49] LABS: NT Pro Brain Natriuretic Pep. 8900 pg/mL (0-125)
[2021-11-20 11:50] LABS: Troponin I < 0.01 ng/ml (0.00-0.034)
[2021-11-20 12:00] VITALS: BP 132/92; PULSE 73; RESP 18; O2SAT 98
[2021-11-20 12:01] LABS: Anion Gap 12.2 mEq/L (5-15); Sodium 135 mmol/L (136-145)
--- NOTE | 2021-11-20 12:09 | PC.NURSE ---
DR MAGALLON AT GOING OVER RESULTS
--- NOTE | 2021-11-20 12:15 | PC.NURSE ---
FAMILY CAME OUT AND SAID HE WANTS TO GO HOME
[2021-11-20 12:44] VITALS: BP 132/92; PULSE 86; RESP 20; TEMP 36.6; O2SAT 98
== END 2021-11-20 12:45 | disposition home or self-care (01) ==
PROVIDERS: Emergency Provider Emergency Medicine
DX: R42 Dizziness and giddiness (principal); R06.02 Shortness of breath; R68.84 Jaw pain; R53.1 Weakness; Z20.822 Contact with and (suspected) exposure to COVID-19; I95.9 Hypotension, unspecified; I50.22 Chronic systolic (congestive) heart failure; I45.10 Unspecified right bundle-branch block; L97.819 Non-pressure chronic ulcer of other part of right lower leg with unspecified severity; Z79.01 Long term (current) use of anticoagulants; Z79.899 Other long term (current) drug therapy; Z87.891 Personal history of nicotine dependence
CPT/HCPCS: 71045; 80053; 83880; 84484; 85025; 93005; 99285; C9803; U0003; U0005